=== PATIENT | female | born 1955 | race African-American/Black ===

== ENCOUNTER 2017-08-06 10:36 | Emergency (ER) | payer OTHER ==
[~2017-08-06] VITALS: Ht 160 cm; Wt 94.8 kg
[2017-08-06] MEDS ORDERED: PROMETHAZINE HCL 25 MG/ML 1ML IM ONE (12:00)
[2017-08-06] MEDS ORDERED: MEPERIDINE HCL (50 MG/ML) 1 ML VIAL IM ONE (12:00)
[2017-08-06 12:41] VITALS: BP 132/64
== END 2017-08-06 12:50 | disposition home or self-care (01) ==
LOC: ER 10:36
DX: G89.29 Other chronic pain (principal); M54.5 Low back pain; I10 Essential (primary) hypertension; Z88.6 Allergy status to analgesic agent
CPT/HCPCS: 96372; 99284; J2175; J2550

== ENCOUNTER 2017-08-07 16:53 | Inpatient (IN) | payer OTHER ==
[~2017-08-07] VITALS: Ht 160 cm; Wt 103.9 kg
[2017-08-07] MEDS ORDERED: SODIUM CHLORIDE 0.9% 500 ML IVB ONE (17:35)
[2017-08-07] MEDS ORDERED: MORPHINE SULFATE 8mg/ml INJ SDV IV ONE (17:45)
[2017-08-07] MEDS ORDERED: ONDANSETRON HCL 4 MG/2 ML VIAL IV ONE (17:45)
[2017-08-07 17:55] LABS: Basophils # (auto) 0 uL; Basophils % (auto) 0.5 % (0.0-2.0); Eosinophils # (auto) 0 uL; Eosinophils % (auto) 0.6 % (0.0-7.0); Hematocrit 39.1 % (36.0-46.0); Hemoglobin 13.5 g/dL (12.2-16.2); Lymphocytes # (auto) 1.5 uL; Lymphocytes % (auto) 22.6 % (10.0-50.0); Mean Corpuscular Hemoglobin 32.9 pg (28.0-32.0); Mean Corpuscular Hgb Conc. 34.4 g/dL (32.0-36.0); Mean Corpuscular Volume 95.8 fL (80.0-100.0); Monocytes # (auto) 0.5 uL; Monocytes % (auto) 7.5 % (0.0-12.0); Neutrophils # (auto) 4.7 uL; Neutrophils % (auto) 68.8 % (37.0-80.0); Nucleated Red Blood Cells % 0.2 %; Platelet Count (auto) 147 10^3/uL (140-450); Red Blood Cells 4.08 10^6/uL (4.0-5.20); Red Cell Distribution Width 14.2 % (11.8-14.3); White Blood Cell 6.8 10^3/uL (4.4-10.8)
[2017-08-07 18:09] LABS: Magnesium 1.8 mg/dL (1.6-2.6)
[2017-08-07 18:13] LABS: BUN/Creatinine Ratio 15.6; Calcium 8.7 mg/dL (8.5-10.1); Potassium 3.9 mmol/L (3.5-5.1)
[2017-08-07 19:23] LABS: Urine Bacteria FEW /hpf (None Seen); Urine Blood Negative /uL (Negative); Urine Mucus FEW (None Seen); Urine Specific Gravity 1.013 (1.001-1.035); Urine WBC 153 /hpf (0 - 5)
[2017-08-07] MEDS ORDERED: cefTRIAXone 1GM/10ml IVPUSH 10 ML IV ONE (20:00)
[2017-08-07] MEDS ORDERED: TEMAZEPAM 15 MG CAP PO PRN (21:15)
[2017-08-07] MEDS ORDERED: ONDANSETRON HCL 4 MG/2 ML VIAL IV PRN (21:15)
[2017-08-07] MEDS ORDERED: ACETAMINOPHEN 325 MG TAB PO PRN (21:15)
[2017-08-07] MEDS: FAMOTIDINE 20 MG TAB PO SCH (22:00)
[2017-08-07 23:00] VITALS: BP 117/60
[2017-08-07 23:05] VITALS: BP 117/60
[2017-08-08] MEDS: MORPHINE SULFATE 8mg/ml INJ SDV IV PRN ×4 (00:53→23:49)
[2017-08-08] MEDS ORDERED: HYDR12.56 PO (03:02)
[2017-08-08] MEDS ORDERED: SPIR25TA89 PO (03:04)
[2017-08-08] MEDS ORDERED: ASPI-498 OR (03:04)
[2017-08-08 05:00] VITALS: BP 98/51
[2017-08-08 06:12] LABS: Basophils # (auto) 0 uL; Basophils % (auto) 0.2 % (0.0-2.0); Eosinophils # (auto) 0 uL; Eosinophils % (auto) 0.5 % (0.0-7.0); Hematocrit 34.4 % (36.0-46.0); Hemoglobin 11.7 g/dL (12.2-16.2); Lymphocytes # (auto) 1.7 uL; Lymphocytes % (auto) 21.6 % (10.0-50.0); Mean Corpuscular Hemoglobin 33.1 pg (28.0-32.0); Mean Corpuscular Hgb Conc. 34.2 g/dL (32.0-36.0); Mean Corpuscular Volume 96.9 fL (80.0-100.0); Monocytes # (auto) 0.6 uL; Monocytes % (auto) 8.2 % (0.0-12.0); Neutrophils # (auto) 5.5 uL; Neutrophils % (auto) 69.5 % (37.0-80.0); Nucleated Red Blood Cells % 0.1 %; Platelet Count (auto) 123 10^3/uL (140-450); Red Blood Cells 3.55 10^6/uL (4.0-5.20); Red Cell Distribution Width 14.5 % (11.8-14.3); White Blood Cell 7.9 10^3/uL (4.4-10.8)
[2017-08-08] MEDS: SPIRONOLACTONE 25 MG TAB PO SCH ×2 (06:40→17:39)
[2017-08-08 08:00] VITALS: BP 97/55
[2017-08-08 09:25] LABS: BUN/Creatinine Ratio 15.5; Potassium 3.6 mmol/L (3.5-5.1)
[2017-08-08 09:26] LABS: Albumin 2.2 g/dL (3.4-5.0); Calcium 7.9 mg/dL (8.5-10.1); Total Protein 7.2 g/dL (6.4-8.2)
[2017-08-08] MEDS: cefTRIAXone 1GM/10ml IVPUSH 10 ML IV SCH (09:39)
[2017-08-08] MEDS: HCTZ 25 MG TAB PO SCH (09:39)
[2017-08-08] MEDS: FAMOTIDINE 20 MG TAB PO SCH ×2 (09:40→22:00)
[2017-08-08] MEDS: ENOXAPARIN SOD 40 MG/0.4 ML SYRINGE SC SCH (09:40)
[2017-08-08 12:30] VITALS: BP 118/65
[2017-08-08 16:30] VITALS: BP 120/62
[2017-08-08 20:00] VITALS: BP 108/57
[2017-08-08 21:30] VITALS: BP 108/57
[2017-08-09] VITALS (7 sets, daily range): BP systolic 99–125; BP diastolic 46–68
[2017-08-09] MEDS: SPIRONOLACTONE 25 MG TAB PO SCH ×2 (06:09→18:13)
[2017-08-09] MEDS: MORPHINE SULFATE 8mg/ml INJ SDV IV PRN ×3 (06:18→20:35)
[2017-08-09 07:06] LABS: Basophils # (auto) 0 uL; Basophils % (auto) 0.4 % (0.0-2.0); Eosinophils # (auto) 0.1 uL; Eosinophils % (auto) 1.2 % (0.0-7.0); Hematocrit 35.4 % (36.0-46.0); Hemoglobin 12.1 g/dL (12.2-16.2); Lymphocytes # (auto) 1.5 uL; Lymphocytes % (auto) 24.5 % (10.0-50.0); Mean Corpuscular Hemoglobin 33.1 pg (28.0-32.0); Mean Corpuscular Hgb Conc. 34.3 g/dL (32.0-36.0); Mean Corpuscular Volume 96.4 fL (80.0-100.0); Monocytes # (auto) 0.6 uL; Monocytes % (auto) 9.5 % (0.0-12.0); Neutrophils # (auto) 3.8 uL; Neutrophils % (auto) 64.4 % (37.0-80.0); Nucleated Red Blood Cells % 0.3 %; Platelet Count (auto) 138 10^3/uL (140-450); Red Blood Cells 3.67 10^6/uL (4.0-5.20); Red Cell Distribution Width 14.4 % (11.8-14.3)
[2017-08-09 07:15] LABS: INR 1.05 (0.9-1.15); Prothrombin Time 11.5 sec (9.37-12.3)
[2017-08-09 07:18] LABS: BUN/Creatinine Ratio 18.9; Calcium 8.6 mg/dL (8.5-10.1); Potassium 3.9 mmol/L (3.5-5.1)
[2017-08-09 07:22] LABS: Albumin 2.3 g/dL (3.4-5.0); Bilirubin, Direct 0.6 mg/dL (0-0.2); Total Protein 7.5 g/dL (6.4-8.2)
[2017-08-09] MEDS: cefTRIAXone 1GM/10ml IVPUSH 10 ML IV SCH (09:49)
[2017-08-09] MEDS: FAMOTIDINE 20 MG TAB PO SCH ×2 (09:50→21:55)
[2017-08-09] MEDS: ENOXAPARIN SOD 40 MG/0.4 ML SYRINGE SC SCH (09:50)
[2017-08-09] MEDS: HCTZ 25 MG TAB PO SCH (12:29)
[2017-08-09] MEDS ORDERED: LACTULOSE 20Gm/30ML SOLN PO ONE (12:45)
[2017-08-09] MEDS: SENNA 8.6 MG TAB PO SCH (21:55)
[2017-08-10] MEDS: MORPHINE SULFATE 8mg/ml INJ SDV IV PRN ×4 (02:36→22:12)
[2017-08-10 04:48] VITALS: BP 101/54
[2017-08-10] MEDS: SPIRONOLACTONE 25 MG TAB PO SCH ×2 (06:16→17:34)
[2017-08-10 06:20] LABS: Basophils # (auto) 0 uL; Basophils % (auto) 0.3 % (0.0-2.0); Eosinophils # (auto) 0.1 uL; Eosinophils % (auto) 0.7 % (0.0-7.0); Hematocrit 34.1 % (36.0-46.0); Hemoglobin 11.7 g/dL (12.2-16.2); Lymphocytes # (auto) 1.6 uL; Lymphocytes % (auto) 22.3 % (10.0-50.0); Mean Corpuscular Hgb Conc. 34.4 g/dL (32.0-36.0); Monocytes # (auto) 0.6 uL; Monocytes % (auto) 7.8 % (0.0-12.0); Neutrophils # (auto) 5.1 uL; Neutrophils % (auto) 68.9 % (37.0-80.0); Nucleated Red Blood Cells % 0.1 %; Platelet Count (auto) 143 10^3/uL (140-450); Red Blood Cells 3.55 10^6/uL (4.0-5.20); White Blood Cell 7.4 10^3/uL (4.4-10.8)
[2017-08-10 06:40] LABS: BUN/Creatinine Ratio 19.8; Calcium 8.6 mg/dL (8.5-10.1)
[2017-08-10] MEDS ORDERED: FLEET ENEMA(ADULT) 135 ML PR ONE (08:30)
[2017-08-10 08:33] VITALS: BP 103/43
[2017-08-10] MEDS: FAMOTIDINE 20 MG TAB PO SCH ×2 (09:44→21:56)
[2017-08-10] MEDS: ENOXAPARIN SOD 40 MG/0.4 ML SYRINGE SC SCH (09:45)
[2017-08-10] MEDS: cefTRIAXone 1GM/10ml IVPUSH 10 ML IV SCH (09:45)
[2017-08-10] MEDS: HCTZ 25 MG TAB PO SCH (09:55)
[2017-08-10] MEDS ORDERED: GADOPENTETATE DIMEGLUMINE (10MMOL/20 ML) VIAL IV ONE (11:56)
[2017-08-10 13:00] VITALS: BP 105/56
[2017-08-10 17:00] VITALS: BP 118/55
[2017-08-10] MEDS: SENNA 8.6 MG TAB PO SCH (21:56)
[2017-08-10 21:58] VITALS: BP 109/67
[2017-08-11] MEDS: MORPHINE SULFATE 8mg/ml INJ SDV IV PRN ×2 (04:47→10:54)
[2017-08-11 04:58] VITALS: BP 103/54
[2017-08-11] MEDS: SPIRONOLACTONE 25 MG TAB PO SCH (05:22)
[2017-08-11 06:04] LABS: Basophils # (auto) 0 uL; Basophils % (auto) 0.3 % (0.0-2.0); Eosinophils # (auto) 0.1 uL; Eosinophils % (auto) 1.4 % (0.0-7.0); Hematocrit 33.3 % (36.0-46.0); Hemoglobin 11.4 g/dL (12.2-16.2); Lymphocytes # (auto) 1.5 uL; Lymphocytes % (auto) 24.7 % (10.0-50.0); Mean Corpuscular Hgb Conc. 34.3 g/dL (32.0-36.0); Mean Corpuscular Volume 96.3 fL (80.0-100.0); Monocytes # (auto) 0.6 uL; Monocytes % (auto) 10.7 % (0.0-12.0); Neutrophils # (auto) 3.8 uL; Neutrophils % (auto) 62.9 % (37.0-80.0); Nucleated Red Blood Cells % 0.1 %; Platelet Count (auto) 143 10^3/uL (140-450); Red Blood Cells 3.45 10^6/uL (4.0-5.20); Red Cell Distribution Width 14.1 % (11.8-14.3)
[2017-08-11 06:36] LABS: BUN/Creatinine Ratio 19.4; Calcium 8.9 mg/dL (8.5-10.1); Potassium 4.2 mmol/L (3.5-5.1)
[2017-08-11] MEDS ORDERED: MAGNESIUM CITRATE SOLUTION 300 ML BTL PO ONE (08:30)
[2017-08-11 09:00] VITALS: BP 99/56
[2017-08-11] MEDS: cefTRIAXone 1GM/10ml IVPUSH 10 ML IV SCH (09:00)
[2017-08-11 09:11] VITALS: BP 99/56
[2017-08-11] MEDS: FAMOTIDINE 20 MG TAB PO SCH (10:00)
[2017-08-11] MEDS: HCTZ 25 MG TAB PO SCH (10:00)
[2017-08-11] MEDS: ENOXAPARIN SOD 40 MG/0.4 ML SYRINGE SC SCH (10:00)
== END 2017-08-11 13:55 | disposition home or self-care (01) | DRG 463 ==
LOC: ER 16:58 → OVERFLOW 16:59 → WEST WING 23:00
PROVIDERS: ADMIT Nurse Practitioner; ATTEND Internal Medicine
DX: N39.0 Urinary tract infection, site not specified (principal); E44.0 Moderate protein-calorie malnutrition; K74.60 Unspecified cirrhosis of liver; N83.201 Unspecified ovarian cyst, right side; N83.202 Unspecified ovarian cyst, left side; E66.9 Obesity, unspecified; I12.9 Hypertensive chronic kidney disease with stage 1 through stage 4 chronic kidney disease, or unspecified chronic kidney disease; N18.2 Chronic kidney disease, stage 2 (mild); M54.9 Dorsalgia, unspecified; F12.90 Cannabis use, unspecified, uncomplicated; Z68.41 Body mass index [BMI] 40.0-44.9, adult; Z88.5 Allergy status to narcotic agent
CPT/HCPCS: 36415; 71045; 73723; 74176; 76856; 80048; 80053; 80076; 81001; 82378; 83690; 83735; 85025; 85610; 86301; 86304; 94761; 96374; 96375; J2270; J2405

== ENCOUNTER 2017-09-17 11:06 | Emergency (ER) | payer OTHER ==
[~2017-09-17] VITALS: Ht 160 cm; Wt 92.1 kg
[~2017-09-17 11:06] MED LIST: ASPI-498 OR; HYDR12.56 PO; SPIR25TA89 PO
[2017-09-17 11:34] VITALS: BP 120/78
[2017-09-17] MEDS ORDERED: KETOROLAC TROMETH 60MG/2ML VIAL IM ONE (12:00)
== END 2017-09-17 12:28 | disposition home or self-care (01) ==
LOC: ER 11:06
DX: G89.29 Other chronic pain (principal); M54.42 Lumbago with sciatica, left side; I10 Essential (primary) hypertension; Z88.6 Allergy status to analgesic agent; Z79.899 Other long term (current) drug therapy
CPT/HCPCS: 93005; 96372; 99283; J1885